=== PATIENT | male | born 1960 | race Caucasian/White ===

== ENCOUNTER → 2020-09-14 | Outpatient (CLI) | payer OTHER | LOC: KOH-I 12:07 | DX: M25.511 Pain in right shoulder (principal); M54.2 Cervicalgia; M54.9 Dorsalgia, unspecified; R05 Cough; M25.561 Pain in right knee; M48.04 Spinal stenosis, thoracic region; M47.816 Spondylosis without myelopathy or radiculopathy, lumbar region; M47.817 Spondylosis without myelopathy or radiculopathy, lumbosacral region; M48.07 Spinal stenosis, lumbosacral region; M48.061 Spinal stenosis, lumbar region without neurogenic claudication; M17.11 Unilateral primary osteoarthritis, right knee; M19.011 Primary osteoarthritis, right shoulder; M25.461 Effusion, right knee; M25.761 Osteophyte, right knee; I65.29 Occlusion and stenosis of unspecified carotid artery | CPT/HCPCS: 71046; 72040; 72070; 72100; 73030; 73564 ==